=== PATIENT | male | born 1950 | race Caucasian/White ===

== ENCOUNTER 2022-03-13 16:05 | Emergency (ER) | payer MEDICARE, SELFPAY ==
[2022-03-13 16:21] VITALS: BP 136/68; PULSE 71; RESP 16; TEMP 36.3; O2SAT 97
--- NOTE | 2022-03-13 16:43 | ED.WOUNDLAC ---
HPI - Wound/Laceration General Chief Complaint: Wound/Laceration Stated Complaint: right finger lac Time Seen by Provider: 03/13/22 16:43 Source: patient, family, RN notes reviewed and old records reviewed Mode of arrival: ambulatory Limitations: no limitations History of Present Illness HPI narrative: 71-year-old male accompanied by significant other presents to [facility] with complaints of laceration to his right distal medial index finger that is 1.5 cm in length no injury to nail bed noted. Patient reports that he was going to use a paperboard box maker to cut a piece of hose with new blade and it flipped before he could even cut hose and sliced his right index finger. Patient reports that his tetanus shot is up to date. Ptient has some bleeding noted from laceration but is controlled with pressure dressing.Patient is right hand dominant. Onset (ago): hour(s) (1 hour prior to arrival) Extremity Location: Right: hand (Right index finger) Related Data Allergies Allergy/AdvReac Type Severity Reaction Status Date / Time No Known Allergies Allergy Verified 03/13/22 16:39 Review of Systems Review of Systems: CONSTITUTIONAL: Denies fever, chills, or sweats. EYES: Denies visual changes, redness, or discharge. ENT: Denies rhinorrhea, congestion, sore throat, or otalgia. CARDIOVASCULAR: Denies chest pain, palpitations, or edema. RESPIRATORY: Denies cough or dyspnea. GASTROINTESTINAL: Denies abdominal pain, nausea, vomiting, or diarrhea. GENITOURINARY: Denies dysuria or hematuria. SKIN: Denies rash or itching.1.5 cm laceration to right distal index finger MUSCULOSKELETAL: Denies back pain, joint pain, or myalgia. NEUROLOGIC: Denies headache, numbness, or weakness. PSYCHIATRIC: Denies anxiety or depression. All systems reviewed & are unremarkable except as noted in HPI and below [facility] Past Medical History Medical History (Updated 03/14/22 @ 00:01 by Steve Moreno) Bronchitis Surgical History Surgical History (Updated 03/14/22 @ 15:54 by Hazel Montez NP) No history of previous surgery Social History Social History (Updated 03/14/22 @ 15:54 by Hazel Montez NP) Smoking status: Never smoker Alcohol intake: current Alcohol use details: rare Substance use type: does not use Living arrangements: with family Gender identity (if verbalized by the patient): Male Comments At time of signature, agree with nursing past medical, surgical, social and family history. There is no relevant family history pertinent to the presenting complaint Exam Narrative: GENERAL: Well-appearing, well-nourished, and in no acute distress. HEAD: Normocephalic, atraumatic. EYES: PERRLA and EOMI. ENT: Nares clear, no rhinorrhea or epistaxis. Mucous membranes moist.TM's normal with goodl light reflex, throat pink with no lesion, exudates, or tonsil swelling. NECK: Supple. No lymphadenopathy CHEST: Clear to auscultation. No respiratory distress. SaO2 97% on room air HEART: Regular rate and rhythm. No murmur heard. Normal peripheral pulses. ABDOMEN: Soft, nontender, nondistended, normal active bowel sounds. EXTREMITIES: Normal range of motion. No edema. SKIN: Warm, dry, no rash.1.5cm laceration to medial alvarado distal right index finger with no injury to nail, strong right radial pulse, nail beds of right hand have brisk capillary refill. NEURO: No focal deficits. Alert and oriented x3. Course Course Level of Care: Express Care Visit Vital Signs Vital signs: Vital Signs Temperature 36.3 C L 03/13/22 16:21 Pulse Rate 71 03/13/22 16:21 Respiratory Rate 16 03/13/22 16:21 Blood Pressure 136/68 03/13/22 16:21 Pulse Oximetry 97 03/13/22 16:21 Temperature 36.3 C L 03/13/22 16:21 Pulse Rate 71 03/13/22 16:21 Respiratory Rate 16 03/13/22 16:21 Blood Pressure 136/68 03/13/22 16:21 Pulse Oximetry 97 03/13/22 16:21 Procedures Laceration right index finger: Date: 03/13/22 Time: 17:00
== END 2022-03-13 17:30 | disposition home or self-care (01) ==
PROVIDERS: Emergency Provider Registered Nurse
DX: S61.210A Laceration without foreign body of right index finger without damage to nail, initial encounter (principal); W26.8XXA Contact with other sharp object(s), not elsewhere classified, initial encounter
CPT/HCPCS: 12001; 99213; G0463